=== PATIENT | female | born 1970 | race Caucasian/White ===

== ENCOUNTER 2018-01-05 18:41 | Emergency (ER) | payer SELFPAY ==
[2018-01-05] MEDS ORDERED: Ketorolac 60 MG/2 ML SDV IM ONE (19:33)
[2018-01-05] MEDS ORDERED: Cyclobenzaprine 10 MG Tab PO ONE (19:33)
--- NOTE | 2018-01-05 19:36 | EDM.PDOC ---
ED HPI GENERAL MEDICAL PROBLEM - General Chief Complaint: Back Pain or Injury Stated Complaint: PT FELL AND HURT RT KNEE Time Seen by Provider: 01/05/18 19:33 Source of Information: Reports: Patient History Limitations: Reports: No Limitations - History of Present Illness INITIAL COMMENTS - FREE TEXT/NARRATIVE: HISTORY AND PHYSICAL: []47-year-old female presenting with lower back pain she says it's like electric going down her legs History of Present Illness: []Patient has degenerative disc disease her knee went out if she was standing on the sidewalk and she fell on her buttocks eliciting this pain Patient is from [place] and just visiting here leaving tomorrow for [place] Review of Systems: As per history of present illness and below otherwise all systems reviewed and negative. Past medical history: As per history of present illness and as reviewed below otherwise noncontributory. Surgical history: As per history of present illness and as reviewed below otherwise noncontributory. Social history: No reported history of drug or alcohol abuse. Family history: As per history of present illness and as reviewed below otherwise noncontributory. Physical exam: Alert and oriented female answering questions appropriately in full sentences without any shortness of breath. She is nontoxic in appearance skin is warm and dry. HEENT: Atraumatic, normocehpalic, pupils reactive, negative for conjunctival pallor or scleral icterus, mucous membranes moist, throat clear, neck supple, nontender, trachea midline. Lungs: Clear to auscultation, breath sounds equal bilaterally, chest non tender. Heart: S1S2, regular, negative for clicks, rubs, or JVD. Abdomen: Soft, nondistended, nontender. Negative for masses or hepatossplenmegaly. Negative for costovertebral tenderness. Back: No edema or ecchymosis noted tenderness with light palpation to the lower s3 Pelvis: Stable nontender. Genitourinary: Deferred. Rectal: Deferred Extremities: Atraumatic, negative for cords or calf pain. Neurovascular unremarkable. Neuro: Awake, alert, oriented. Cranial nerves II through XII unremarkable. Cerebellum unremarkable. Motor and sensory unremarkable throughout. Exam nonfocal. Diagnostics: [] Therapeutics: []toradal Impression: []Acute on chronic lower back pain Plan: []Discharged home Follow up with your primary care provider when you get home to [place] this weekend Prescription for diclofenac has been sent to in the pharmacy Definitive disposition and diagnosis as appropriate pending reevaluation and review of above. Onset: Today, Sudden Duration: Hour(s): Location: Reports: Back Quality: Reports: Stabbing Severity: Moderate Improves with: Reports: None Worsens with: Reports: None Associated Symptoms: Reports: No Other Symptoms Lower Back Pain Score (Numeric/FACES): 8 - Related Data Allergies Allergy/AdvReac Type Severity Reaction Status Date / Time latex Allergy Anaphylactic Verified 01/05/18 19:01 Shock Home Meds: Home Meds Diclofenac Sodium [Voltaren] 75 mg PO BIDMEALS #12 tab.cr 01/05/18 [Rx] Prazosin HCl [Prazosin] 5 mg PO DAILY 01/05/18 [History] QUEtiapine [SEROquel] 300 mg PO DAILY 01/05/18 [History] busPIRone [Buspar] 10 mg PO DAILY 01/05/18 [History] Past Medical History Cardiovascular History: Reports: [place], Stents Other Cardiovascular History: R artery stent Psychiatric History: Reports: Anxiety, Depression, PTSD Social & Family History - Tobacco Use Smoking Status *Q: Current Every Day Smoker Years of Tobacco use: 35 Packs/Tins Daily: 1 - Caffeine Use Caffeine Use: Reports: Coffee, Soda - Recreational Drug Use Recreational Drug Use: No ED ROS GENERAL - Review of Systems Review Of Systems: ROS reveals no pertinent complaints other than HPI. ED EXAM,LOWER BACK PAIN/INJURY - Physical Exam Exam: See Below (see dictation) Course - Vital Signs Last Recorded V/S: Last Vital Signs Temp 36.2 C 01/05/18 18:58 Pulse 93 01/05/18 18:58 Resp 20 01/05/18 18:58 BP 179/106 H 01/05/18 18:58 Pulse Ox 98 01/05/18 18:58 - Orders/Labs/Meds Meds: Medications Discontinued Medications Generic Name Dose Route Start Last Admin Trade Name Thomasq PRN Reason Stop Dose Admin Cyclobenzaprine HCl 10 mg 01/05/18 19:33 01/05/18 19:44 Flexeril PO 01/05/18 19:34 10 mg ONETIME ONE Administration Ketorolac Tromethamine 60 mg 01/05/18 19:33 01/05/18 19:43 Toradol IM 01/05/18 19:34 60 mg ONETIME ONE Administration Departure - Departure Time of Disposition: 19:51 Disposition: Home, Self-Care 01 Condition: Good Clinical Impression: Acute low back pain Qualifiers: Back pain laterality: midline Sciatica presence: with sciatica Sciatica laterality: bilateral sciatica Qualified Code(s): M54.42 - Lumbago with sciatica , left side; M54.41 - Lumbago with sciatica, right side - Discharge Information *PRESCRIPTION DRUG MONITORING PROGRAM REVIEWED*: Not Applicable *COPY OF PRESCRIPTION DRUG MONITORING REPORT IN PATIENT [place]: Not Applicable Prescriptions: Diclofenac Sodium [Voltaren] 75 mg PO BIDMEALS #12 tab.cr Instructions: Back Pain, Adult Referrals: PCP,None [Primary Care Provider] - Forms: ED Department Discharge Additional Instructions: The following information is given to patients seen in the emergency department who are being discharged to home. This information is to outline your options for follow-up care. We provide all patients seen in our emergency department with a follow-up referral. The need for follow-up, as well as the timing and circumstances, are variable depending upon the specifics of your emergency department visit. If you don't have a primary care physician on staff, we will provide you with a referral. We always advise you to contact your personal physician following an emergency department visit to inform them of the circumstance of the visit and for follow-up with them and/or the need for any referrals to a consulting specialist. The emergency department will also refer you to a specialist when appropriate. This referral assures that you have the opportunity for followup care with a specialist. All of these measure are taken in an effort to provide you with optimal care, which includes your followup. Under all circumstances we always encourage you to contact your private physician who remains a resource for coordinating your care. When calling for followup care, please make the office aware that this follow-up is from your recent emergency room visit. If for any reason you are refused follow-up, please contact the [facility] emergency department at and asked to speak to the emergency department charge nurse. Discharged home Follow up with your primary care provider when you get home to [place] this weekend Prescription for diclofenac has been sent to in the pharmacy
== END 2018-01-05 20:05 | disposition home or self-care (01) ==
LOC: MW.ED 18:41
DX: M54.42 Lumbago with sciatica, left side (principal); M54.41 Lumbago with sciatica, right side; F17.210 Nicotine dependence, cigarettes, uncomplicated; F41.9 Anxiety disorder, unspecified; F32.9 Major depressive disorder, single episode, unspecified; Z91.040 Latex allergy status
CPT/HCPCS: 96372; 99283; A9270; J1885